=== PATIENT | male | born 2000 | race Caucasian/White ===

== ENCOUNTER 2022-03-22 11:09 | Emergency (ER) | payer OTHER ==
[~2022-03-22] VITALS: Ht 172.7 cm; Wt 86.1 kg
[2022-03-22 11:10] VITALS: BP 139/69
[2022-03-22] MEDS ORDERED: CEPH500T PO (11:28)
[2022-03-22] MEDS ORDERED: AMPICILLIN SOD/SULBACTAM SOD 3 GM in D5W MINI-BAG PLUS 100 ML IV ONE (12:50)
[2022-03-22] MEDS ORDERED: KETOROLAC 30 MG/ML 1ML VIAL IV ONE (13:10)
[2022-03-22 13:34] LABS: BASO % 0.2 % (0.0-1.0); EOS # 0.1 10^3/uL (0.0-0.5); EOS % 0.7 % (0.0-3.0); HEMATOCRIT 39.1 % (42.0-52.0); HEMOGLOBIN 13.6 g/dl (13.5-17.5); LYMPH # 2.5 10^3/uL (1.5-5.0); LYMPH % 29.8 % (24.0-44.0); MEAN CORPUSCULAR HEMOGLOBIN 30.3 pg (27.0-33.0); MEAN CORPUSCULAR HGB CONC 34.8 g/dl (32.0-36.5); MEAN CORPUSCULAR VOLUME 87.1 fl (80.0-96.0); MONO # 0.8 10^3/uL (0.0-0.8); MONO % 9.1 % (2.0-8.0); NEUTROPHILS # 5.1 10^3/uL (1.5-8.5); NEUTROPHILS % 59.8 % (36.0-66.0); PLATELET COUNT, AUTOMATED 232 10^3/uL (150-450); RED BLOOD COUNT 4.49 10^6/uL (4.30-6.10); WHITE BLOOD COUNT 8.5 10^3/uL (4.0-10.0)
[2022-03-22] MEDS ORDERED: AMOX875T2 PO (14:02)
[2022-03-22] MEDS ORDERED: IBUP-1022 PO (14:02)
[2022-03-22 14:17] LABS: ERYTHROCYTE SEDIMENTATION RATE 4 mm/hr (0-15)
== END 2022-03-22 14:27 | disposition home or self-care (01) ==
LOC: M ED 11:09
DX: L03.012 Cellulitis of left finger (principal); S61.432A Puncture wound without foreign body of left hand, initial encounter; W55.01XA Bitten by cat, initial encounter; Y92.009 Unspecified place in unspecified non-institutional (private) residence as the place of occurrence of the external cause; Y93.9 Activity, unspecified; Y99.9 Unspecified external cause status; Z79.899 Other long term (current) drug therapy
CPT/HCPCS: 73140; 85025; 85652; 86140; 96375; 99283; J0295; J1885

== ENCOUNTER 2022-12-27 12:01 | Emergency (ER) | payer OTHER ==
[~2022-12-27] VITALS: Ht 172.7 cm; Wt 81.4 kg
[2022-12-27 12:01] VITALS: BP 133/86
[~2022-12-27 12:01] MED LIST: AMOX875T2 PO; CEPH500T PO; IBUP-1022 PO
[2022-12-27] MEDS ORDERED: LIDOCAINE 1% SDV 5ML VIAL DILUENT ONE (14:10)
[2022-12-27] MEDS ORDERED: cefTRIAXone 500MG VIAL IM ONE (14:10)
[2022-12-27] MEDS ORDERED: AZITHROMYCIN 250MG TABLET PO ONE (14:10)
[2022-12-27] MEDS ORDERED: DOXY-443 PO (14:14)
[2022-12-27 14:23] LABS: GC DNA AMPLIFICATION NEGATIVE (NEGATIVE)
== END 2022-12-27 14:37 | disposition home or self-care (01) ==
LOC: M ED 12:01
DX: N43.3 Hydrocele, unspecified (principal); Z79.899 Other long term (current) drug therapy
CPT/HCPCS: 76870; 81001; 87661; 87810; 87850; 93976; 96372; 99282; J0696

== ENCOUNTER → 2024-08-06 | Outpatient (CLI) | payer OTHER ==
[~2024-08-06] MED LIST changes: +DOXY-441 PO
== END ==
LOC: M CARPUL 09:00
PROVIDERS: ATTEND Physician Assistant
DX: R00.2 Palpitations (principal); Z87.09 Personal history of other diseases of the respiratory system

== ENCOUNTER → 2024-08-15 | Outpatient (CLI) | payer OTHER ==
[~2024-08-15] MED LIST changes: +METHACHOLINE KIT (6 VIAL.NEB PREMIX) INH ONE
== END ==
LOC: M CARPUL 07:38
PROVIDERS: ATTEND Physician Assistant
DX: R00.2 Palpitations (principal)
CPT/HCPCS: 94070; J7674